=== PATIENT | female | born 1990 | race Caucasian/White ===

== ENCOUNTER 2018-08-27 16:10 | Emergency (ER) | payer OTHER ==
[~2018-08-27] VITALS: Ht 165.1 cm; Wt 65.8 kg
[2018-08-27 16:28] VITALS: BP 104/40
--- NOTE | 2018-08-27 16:39 | NUR ---
PATIENT AMBULATED TO BED 3 AT THIS TIME.
--- NOTE | 2018-08-27 16:50 | NUR ---
pt sent here from pmd/clinic for further evaluations.slightly anxious.awaits ewr /pa-c evaluations/assessments.konstantin oropeza.
--- NOTE | 2018-08-27 17:03 | NUR ---
cheri holbrook/ashish pino pa-c at bedside for evaluations/assessments.konstantin oropeza.awaits reevaluations.
--- NOTE | 2018-08-27 17:45 | NUR ---
pelvic examdone by er /ashish pino pa-c with adult female staff member.specimens sent to lab.pt tolerated procedures with no incidents.awaits test results,reevaluations.konstantin oropeza.
--- NOTE | 2018-08-27 17:49 | NUR ---
Female [employer] EMT SEAN accompanied ER MD DR JARQUIN FOR A female patient for Pelvic Exam.
--- NOTE | 2018-08-27 18:25 | NUR ---
ambulated to/from bathroom on her own for urine specimen,ua hcg being done to specimen.pt tolerated procedures with no incidents.konstantin oropeza.awaits reevaluations.
--- NOTE | 2018-08-27 18:44 | NUR ---
cheri holbrook/ashish pino pa-c at bedside for reevaluations.konstantin oropeza.awaits reevaluations.
[2018-08-27] MEDS ORDERED: cefTRIAXone 250 MG in LIDOCAINE MPF 1% - 5 mL VIAL 0.9 ML IM ONE (18:55)
--- NOTE | 2018-08-27 19:05 | NUR ---
pt endorsed to/accepted by narcisa rose.
--- NOTE | 2018-08-27 19:05 | NUR ---
report received from PATRICIA Nolan. assumed care at this time.
[2018-08-27 19:50] VITALS: BP 116/61
--- NOTE | 2018-08-27 19:50 | NUR ---
Patient discharged with v/s stable. Written and verbal after care instructions given and explained. Patient alert, oriented and verbalized understanding of instructions. Ambulatory with steady gait. All questions addressed prior to discharge. ID band removed. Patient advised to follow up with PMD. Rx of FLAGYL, DOXYCYCLINE given. Patient educated on indication of medication including possible reaction and side effects. Opportunity to ask questions provided and answered.
[2018-08-29 06:19] LABS: CHLAMYDIA TRACHOMATIS AMP DNA Negative (Negative)
== END 2018-08-27 19:50 | disposition home or self-care (01) ==
LOC: MED 16:10
DX: T19.2XXA Foreign body in vulva and vagina, initial encounter (principal); X58.XXXA Exposure to other specified factors, initial encounter; Y93.89 Activity, other specified; Y92.89 Other specified places as the place of occurrence of the external cause; Y99.8 Other external cause status
CPT/HCPCS: 36415; 81025; 87210; 87491; 96372; 99284; J0696; J2001